=== PATIENT | male | born 1975 | race Caucasian/White ===

== ENCOUNTER → 2016-07-08 | Outpatient (CLI) | payer BC ==
[~2016-07-08] MED LIST: AMOXICILLIN500 MG PO; ASPIRIN 325MG325 MG PO; GLUCOPHAGE 500500 MG PO; IBUPROFEN800 MG PO; KEFLEX500 MG PO; LIDODERM PATCH XX; LISINOPRIL-HCT1 EAC2 PO; MULTIVITAMINS1 EAC1 PO; PERCOCET 10-321 EACH PO; PHENERGAN 25 MG25 M1 PO; PROZAC40 MG PO; ROXICODONE TAB 55 MG PO; TAPENTADOL 75 MG PO; TRAMADOL HCL50 MG PO; VITAMIN C 250250 MG PO; VOLTAREN-XR100 MG PO
[2016-07-08 12:51] LABS: BUN/CREATININE RATIO 18 (0-10)
[2016-07-08 12:55] LABS: HEMOGLOBIN 13.8 gm/dl (14.0-17.5); RED BLOOD COUNT 4.42 M/UL (4.20-5.50); WHITE BLOOD COUNT 6.2 K/UL (4.5-11.0)
== END ==
LOC: OPSV2 11:48
PROVIDERS: Podiatrist Foot & Ankle Surgery
DX: Z01.812 Encounter for preprocedural laboratory examination (principal); R22.41 Localized swelling, mass and lump, right lower limb
CPT/HCPCS: 80048; 85027

== ENCOUNTER → 2016-07-09 | Day surgery (SDC) | payer BC ==
[~2016-07-09] VITALS: Ht 182.9 cm; Wt 148.3 kg
== END | disposition home or self-care (01) ==
LOC: OR 05:51
PROVIDERS: Podiatrist Foot & Ankle Surgery
PROC: 3E0T3TZ Introduction of Destructive Agent into Peripheral Nerves and Plexi, Percutaneous Approach (ICD-10-PCS; 2016-07-09)
PROC: 0JBQ0ZZ Excision of Right Foot Subcutaneous Tissue and Fascia, Open Approach (ICD-10-PCS; 2016-07-09)
PROC: 0J8Q0ZZ Division of Right Foot Subcutaneous Tissue and Fascia, Open Approach (ICD-10-PCS; principal; 2016-07-09 07:45)
DX: R22.41 Localized swelling, mass and lump, right lower limb (principal); G58.8 Other specified mononeuropathies; M79.89 Other specified soft tissue disorders; M24.174 Other articular cartilage disorders, right foot; G47.30 Sleep apnea, unspecified; I10 Essential (primary) hypertension; E11.9 Type 2 diabetes mellitus without complications; G89.29 Other chronic pain; Z79.84 Long term (current) use of oral hypoglycemic drugs; Z88.2 Allergy status to sulfonamides
CPT/HCPCS: 82962; J0690; J1100; J1885; J2250; J2405; J2710; J2795; J3010; J3370; J7030; J7120

== ENCOUNTER → 2020-02-25 | Outpatient (CLI) | payer BC ==
[~2020-02-25] MED LIST changes: +FLUOXETINE HCL40 MG PO; +KEFLEX CAP 500500 MG PO; +LISINOPRIL10 MG PO; +LOVENOX SY40 MG/0.4 SQ; +PANTOPRAZOLE SO40 MG PO; +PERCOCET 5/325 T1 EA PO; +PRILOSEC OTC20 MG PO; +TYLENOL #3 PO; +[UNRECOGNIZED DRUG - OTHER] PO
== END ==
LOC: KOH-I 09:45
DX: M24.671 Ankylosis, right ankle (principal); Z98.890 Other specified postprocedural states
CPT/HCPCS: 73610

== ENCOUNTER → 2020-08-19 | Outpatient (CLI) | payer BC | LOC: KOH-I 10:10 | DX: M25.571 Pain in right ankle and joints of right foot (principal); M79.671 Pain in right foot; M19.071 Primary osteoarthritis, right ankle and foot | CPT/HCPCS: 73610; 73630 ==

== ENCOUNTER → 2020-09-09 | Outpatient (CLI) | payer BC | LOC: KOH-I 09:47 | DX: M25.571 Pain in right ankle and joints of right foot (principal); S92.341A Displaced fracture of fourth metatarsal bone, right foot, initial encounter for closed fracture; X58.XXXA Exposure to other specified factors, initial encounter | CPT/HCPCS: 73610; 73630 ==

== ENCOUNTER → 2020-09-25 | Outpatient (CLI) | payer BC | LOC: KOH-I 14:46 | DX: M25.562 Pain in left knee (principal) | CPT/HCPCS: 73562 ==

== ENCOUNTER → 2020-10-21 | Outpatient (CLI) | payer BC | LOC: KOH-I 08:59 | DX: S92.341D Displaced fracture of fourth metatarsal bone, right foot, subsequent encounter for fracture with routine healing (principal) | CPT/HCPCS: 73630 ==

== ENCOUNTER → 2020-12-02 | Outpatient (CLI) | payer BC | LOC: KOH-I 15:30 | DX: S92.341A Displaced fracture of fourth metatarsal bone, right foot, initial encounter for closed fracture (principal); M19.071 Primary osteoarthritis, right ankle and foot | CPT/HCPCS: 73630 ==

== ENCOUNTER → 2020-12-15 | Outpatient (CLI) | payer BC | LOC: KOH-I 08:43 | DX: M21.541 Acquired clubfoot, right foot (principal); M79.671 Pain in right foot; G89.29 Other chronic pain | CPT/HCPCS: 73718 ==

== ENCOUNTER → 2021-03-30 | Outpatient (CLI) | payer BC | LOC: KOH-I 15:31 | DX: M25.571 Pain in right ankle and joints of right foot (principal); M79.671 Pain in right foot | CPT/HCPCS: 73610; 73630 ==